=== PATIENT | female | born 1960 | race Two or more races ===

== ENCOUNTER 2024-06-19 07:09 | Inpatient (IN) | payer SELFPAY ==
[2024-06-17 11:55] LABS: Urine Bacteria None Seen /hpf (None Seen)
[2024-06-17 12:02] LABS: Basophils # (auto) 0 10 ^3/uL (0-0.2); Basophils % (auto) 0.5 % (0.0-2.0); Eosinophils # (auto) 0.1 10 ^3/uL (0-0.8); Eosinophils % (auto) 2.8 % (0.0-7.0); Hematocrit 42.2 % (36.0-46.0); Hemoglobin 14.2 g/dL (12.2-16.2); Lymphocytes # (auto) 2.2 10 ^3/uL (0.4-5.4); Lymphocytes % (auto) 43.2 % (10.0-50.0); Mean Corpuscular Hemoglobin 28.2 pg (28.0-32.0); Mean Corpuscular Hgb Conc. 33.6 g/dL (32.0-36.0); Mean Corpuscular Volume 83.9 fL (80.0-100.0); Monocytes # (auto) 0.6 10 ^3/uL (0-1.3); Monocytes % (auto) 11.3 % (0.0-12.0); Neutrophils # (auto) 2.2 10 ^3/uL (1.6-8.6); Neutrophils % (auto) 42.2 % (37.0-80.0); Nucleated Red Blood Cells % 0.1 %; Platelet Count (auto) 285 10^3/uL (140-450); Red Blood Cells 5.03 10^6/uL (4.0-5.20); Red Cell Distribution Width 13.8 % (11.8-14.3); White Blood Cell 5.1 10^3/uL (4.4-10.8)
[2024-06-17 12:18] LABS: Alanine Aminotransferase 26 U/L (7-40); Alkaline Phosphatase 69 U/L (46-116); Aspartate Aminotransferase 20 U/L (13-40); Blood Urea Nitrogen 12 mg/dL (9-23); Calcium 9.9 mg/dL (8.7-10.4); Chloride 102 mmol/L (98-107); Glucose 97 mg/dL (74-106); INR 1.02 (0.9-1.15); Partial Thromboplastin Time 29.1 SEC (24.5-34.5); Prothrombin Time 10.8 sec (9.3-11.8); Sodium 141 mmol/L (136-145)
[2024-06-17 12:19] LABS: Total Protein 7.4 g/dL (5.7-8.2)
[2024-06-17 12:22] LABS: Potassium 3.2 mmol/L (3.5-5.1)
[2024-06-17 12:24] LABS: Albumin 4.8 g/dL (3.2-4.8); Anion Gap 6 (5-15); Bilirubin, Total 0.3 mg/dL (0.2-1.0); Carbon Dioxide 33 mmol/L (20-31)
[2024-06-17 13:07] LABS: Urine Blood Negative /uL (Negative); Urine Clarity Clear (Clear); Urine Color Light-Yellow (Yellow); Urine Protein, UAD Negative (Negative); Urine Specific Gravity 1.008 (1.001-1.035); Urine Squamous Epithelial Cell FEW /hpf (<5); Urine Urobilinogen Normal (Negative); Urine WBC < 1 /HPF (0-5)
[2024-06-17 14:18] LABS: BUN/Creatinine Ratio 13.6 (10.0-20.0)
[~2024-06-19] VITALS: Ht 152.4 cm; Wt 29.3 kg
[~2024-06-19 07:09] MED LIST: ATOR20TA50 PO; HYDR25TA4 PO; LEVO100T8 PO; PANT40TA2 PO
[2024-06-19] MEDS: ceFAZolin 2 GM/D5W100ml 100 ML IV ONE (07:20)
[2024-06-19] MEDS ORDERED: ePHEDrine SULFATE 50 MG/ML AMP ONE (07:39)
[2024-06-19] MEDS ORDERED: MIDAZOLAM HCL 2MG/2ML 2ml VIAL (1mg/ml) ONE (07:39)
[2024-06-19] MEDS ORDERED: ROCURONIUM 10MG/ML 10ML VIAL IV ONE (07:39)
[2024-06-19] MEDS ORDERED: GLYCOPYRROLATE 0.2 MG/ML 1ML VIAL ONE (07:39)
[2024-06-19] MEDS ORDERED: fentaNYL CITRATE 100 MCG/2 ML VL ONE (07:39)
[2024-06-19] MEDS ORDERED: ONDANSETRON HCL 4 MG/2 ML VIAL ONE (07:39)
[2024-06-19] MEDS ORDERED: PHENYLEPHRINE HCL 10 MG/ML VL ONE (07:39)
[2024-06-19] MEDS ORDERED: HYDROmorphone HCL 2 MG/ML VL/or syr ONE (07:39)
[2024-06-19] MEDS ORDERED: LIDOCAINE 2% (LOCAL ANESTH.) PF 5ml SDV ONE (07:39)
[2024-06-19] MEDS ORDERED: PROPOFOL 10 MG/ML 20 ML IV ONE (07:39)
[2024-06-19] MEDS ORDERED: DexAMETHasone SOD PHOS 10MG/1ML VIAL INJ ONE (07:39)
[2024-06-19] MEDS ORDERED: SUGAMMADEX 200mg/2ml Vial (100MG/ML) IV ONE (08:32)
[2024-06-19] MEDS: LIDOCAINE W/ EPINEPHRINE 1% 20ML VIAL ONE (08:37)
[2024-06-19] MEDS: BUPIVACAINE 0.5% P/F INJ 10 ML VIAL ONE (08:37)
[2024-06-19] MEDS ORDERED: ONDANSETRON HCL 4 MG/2 ML VIAL IV PRN (09:00)
[2024-06-19 09:02] VITALS: PULSE 105; RESP 15; O2SAT 98
--- NOTE | 2024-06-19 09:10 | DVHOP ---
DATE OF SURGERY: 06/19/2024 PREOPERATIVE DIAGNOSES: Cholelithiasis, cholecystitis. POSTOPERATIVE DIAGNOSES: Cholelithiasis, cholecystitis. SURGEON: Wil Carr MD [employer]INTE[employer]CE ELECTRICIAN: Cooper Bhatt. ANESTHESIA: General endotracheal. ANESTHESIOLOGIST: Dr. Woodall. PROCEDURES: Laparoscopy, laparoscopic cholecystectomy. DESCRIPTION OF PROCEDURE: Under general endotracheal anesthesia, with the patient's skin prepped and draped, supraumbilical incision was made and Veress needle inserted into the abdomen in order to establish pneumoperitoneum to 15 mmHg pressure by insufflation with carbon dioxide. With the abdomen fully distended, the needle was removed and replaced with a 5 mm trocar port through which a 0-degree viewing laparoscope was inserted and under direct vision, 5 and 10 mm ports inserted through the right lateral abdominal wall at the level of the umbilicus and the subxiphoid skin in the midline respectively. Instrumentation was introduced. Laparoscopy was performed, revealed no obvious unexpected pathology. The gallbladder was affected by chronic cholecystitis. It was placed on tension. The cystic duct and cystic artery were identified, circumferentially dissected, skeletonized and traced into the hepatocystic triangle so as to minimize the potential for inadvertent injury to the common bile duct. The cystic duct and cystic artery were then divided between metallic clips and the gallbladder resected from its liver bed by electrocautery and traction. The fully mobilized gallbladder was removed from the peritoneal cavity by placement in a specimen extraction bag, which was removed from the peritoneal cavity through the subxiphoid 10 mm port site. The right upper quadrant was then profusely irrigated, irrigant was aspirated. Amniotic allograft placed into the liver bed to aid with prevention of adhesions. The hemostasis being complete, the instrumentation was withdrawn. Pneumoperitoneum was evacuated. Fascial defect closed using 0 Vicryl. Wounds approximated using Monocryl sutures, Dermabond glue and Steri-Strips. The patient remained stable throughout the procedure, left the operating room following an accurate needle and sponge count. Family was thoroughly informed in the waiting area. Wil Carr MD PF/SAY TID: [id number] RECEIPT: [id number]
[2024-06-19] MEDS: ONDANSETRON HCL 4 MG/2 ML VIAL IV ONE (09:15)
[2024-06-19] MEDS: HYDROmorphone HCL 2 MG/ML VL/or syr IV PRN (09:28)
[2024-06-19] MEDS: PANTOPRAZOLE 40 MG/10 ML VIAL INJ IV SCH (10:00)
[2024-06-19 12:00] VITALS: BP 125/81; PULSE 63; RESP 16; TEMP 97.6; O2SAT 100
[2024-06-19] MEDS: D5W/SOD CHL 0.45%/KCL 20MEQ 1,000 ML IV SCH (12:01)
[2024-06-19] MEDS: ceFAZolin 1GM/50ML 50 ML IV SCH (14:24)
[2024-06-19] MEDS ORDERED: MORPHINE SULFATE INJ 2 MG/ml SYRG IV PRN (15:00)
--- NOTE | 2024-06-19 15:01 | DVHHP2 ---
Review of Systems Allergies: Uncoded Allergies: Imetrix (Allergy, Severe, Anaphylaxis, 06/17/24) Medications Current Medications Medications Dose Ordered Sig/Tiat Route Start Time Stop Time Status Last Admin Dose Admin Potassium Chloride/Dextrose/ Sod Cl 1,000 ml @ 100 mls/hr Q10H IV 06/19/24 09:00 06/19/24 12:01 100 MLS/HR Cefazolin Sodium 50 ml @ 100 mls/hr Q8HR IV 06/19/24 14:00 06/19/24 14:24 100 MLS/HR Ondansetron HCl 4 mg Q4HPRN PRN IV 06/19/24 09:00 Pantoprazole Sodium 40 mg DAILY IV 06/19/24 10:00 06/19/24 10:00 40 MG Acetaminophen/ Codeine Phosphate 1 tab Q4HP PRN PO 06/19/24 09:00 Exam Vital Signs Vital Signs Date Time Temp Pulse Resp B/P (MAP) Pulse Ox O2 Delivery O2 Flow Rate FiO2 06/19/24 12:00 97.6 63 16 125/81 (96) 100 97.6 06/19/24 09:02 Mask 7.0 06/19/24 09:02 98 Labs/Xrays Labs Test 06/17/24 11:48 Range/Units White Blood Count 5.1 4.4-10.8 10^3/uL Red Blood Count 5.03 4.0-5.20 10^6/uL Hemoglobin 14.2 12.2-16.2 g/dL Hematocrit 42.2 36.0-46.0 % Mean Corpuscular Volume 83.9 80.0-100.0 fL Mean Corpuscular Hemoglobin 28.2 28.0-32.0 pg Mean Corpuscular Hemoglobin Concent 33.6 32.0-36.0 g/dL Red Cell Distribution Width 13.8 11.8-14.3 % Platelet Count 285 140-450 10^3/uL Mean Platelet Volume 8.4 6.9-10.8 fL Neutrophils (%) (Auto) 42.2 37.0-80.0 % Lymphocytes (%) (Auto) 43.2 10.0-50.0 % Monocytes (%) (Auto) 11.3 0.0-12.0 % Eosinophils (%) (Auto) 2.8 0.0-7.0 % Basophils (%) (Auto) 0.5 0.0-2.0 % Neutrophils # (Auto) 2.2 1.6-8.6 10 ^3/uL Lymphocytes # (Auto) 2.2 0.4-5.4 10 ^3/uL Monocytes # (Auto) 0.6 0-1.3 10 ^3/uL Eosinophils # (Auto) 0.1 0-0.8 10 ^3/uL Basophils # (Auto) 0 0-0.2 10 ^3/uL Nucleated Red Blood Cells 0.1 % Prothrombin Time 10.8 9.3-11.8 sec Prothrombin Time INR 1.02 0.9-1.15 Activated Partial Thromboplast Time 29.1 24.5-34.5 SEC Urine Color Light-yellow Yellow Urine Clarity Clear Clear Urine pH 7.0 5.0-9.0 Urine Specific [place] 1.008 1.001-1.035 Urine Protein Negative Negative Urine Ketones Negative Negative Urine Blood Negative Negative /uL Urine Nitrite Negative Negative Urine Bilirubin Negative Negative Urine Urobilinogen Normal Negative mg/dL Urine Leukocyte Esterase Negative Negative /uL Urine RBC <1 0 - 4 /hpf Urine Microscopic WBC < 1 0-5 /HPF Urine Squamous Epithelial Cells Few <5 /hpf Urine Bacteria None seen None Seen /hpf Urine Glucose Normal Normal mg/dL Sodium Level 141 136-145 mmol/L Potassium Level 3.2 L 3.5-5.1 mmol/L Chloride Level 102 98-107 mmol/L Carbon Dioxide Level 33 H 20-31 mmol/L Anion Gap 6 5-15 Blood Urea Nitrogen 12 9-23 mg/dL Creatinine 0.88 0.550-1.02 mg/dL Glomerular Filtration Rate Calc 73 >90 mL/min BUN/Creatinine Ratio 13.6 10.0-20.0 Serum Glucose 97 74-106 mg/dL Calcium Level 9.9 8.7-10.4 mg/dL Total Bilirubin 0.3 0.2-1.0 mg/dL Aspartate Amino Transferase (AST) 20 13-40 U/L Alanine Aminotransferase (ALT) 26 7-40 U/L Alkaline Phosphatase 69 46-116 U/L Total Protein 7.4 5.7-8.2 g/dL Albumin 4.8 3.2-4.8 g/dL Assessment/Plan Assessment/Plan see dictated note Plan discussed with: Patient My Orders Orders - HIMA FLORES MD Procedure Category Date Status Time Admit ADMIT 06/19/24 Transmitted 10:06 Date of Service: Jun 19, 2024 Billing Provider: HIMA FLORES MD Common Visit Codes: [id number] INP/OBS CARE (HIGH) HIMA FLORES MD Jun 19, 2024 15:01
--- NOTE | 2024-06-19 15:17 | DVHHP ---
ADMIT DATE: 06/19/2024 HISTORY OF PRESENT ILLNESS: The patient is a 64-year-old lady who underwent a laparoscopic cholecystectomy for cholelithiasis and chronic cholecystitis. The patient at this time denies any significant abdominal pain. No shortness of breath. No nausea or vomiting. REVIEW OF SYSTEMS: Review of rest of systems are otherwise currently negative. PAST MEDICAL HISTORY: Significant for hypertension, hypothyroidism, GERD and hyperlipidemia. MEDICATIONS: She takes atorvastatin, hydrochlorothiazide, levothyroxine, and Protonix. ALLERGIES: IMITREX. SOCIAL HISTORY: Denies smoking or alcohol. Lives at home with family. FAMILY HISTORY: Negative. PHYSICAL EXAMINATION: GENERAL: The patient is awake, alert. VITAL SIGNS: Temperature of 97.6, pulse 63 per minute, blood pressure 120/81. SHEENT: Unremarkable. NECK: There is no JVD, no pedal edema. LUNGS: Equal bilaterally. No added sounds. CARDIOVASCULAR: S1, S2 is regular, no murmurs. ABDOMEN: Soft. Bowel sounds are hypoactive. NEUROLOGIC: Nonfocal. MUSCULOSKELETAL: Normal. ASSESSMENT AND PLAN: * Hypertension, for which her blood pressure will be monitored. * Hypothyroidism. The patient will continue on levothyroxine and TSH will be checked. * Hyperlipidemia. * Gastroesophageal reflux disease. * Status post laparoscopic cholecystectomy for cholelithiasis and chronic cholecystitis. The patient will be placed on a clear liquid diet with IV fluids and pain medications. MD EMMY Mistry/BEAU TID: [id number] RECEIPT: [id number]
[2024-06-19 16:32] VITALS: BP 110/59; PULSE 65; RESP 18; TEMP 97.9; O2SAT 96
[2024-06-19] MEDS: ACETAMINOPHEN/CODEINE#3 (300/30mg) TAB PO PRN (18:23)
[2024-06-19 20:00] VITALS: PULSE 86; RESP 19; O2SAT 98
[2024-06-19 21:00] VITALS: BP 111/71; PULSE 86; RESP 19; TEMP 98.2; O2SAT 98
[2024-06-20 01:00] VITALS: BP 108/70; PULSE 80; RESP 17; TEMP 97.4; O2SAT 100
[2024-06-20 05:00] VITALS: BP 141/72; PULSE 75; RESP 18; TEMP 97.7; O2SAT 98
[2024-06-20] MEDS: LEVOTHYROXINE SODIUM 100 MCG TAB PO SCH (06:07)
[2024-06-20 06:09] LABS: Basophils # (auto) 0 10 ^3/uL (0-0.2); Eosinophils # (auto) 0 10 ^3/uL (0-0.8); Hematocrit 41.7 % (36.0-46.0); Hemoglobin 13.8 g/dL (12.2-16.2); Lymphocytes # (auto) 0.9 10 ^3/uL (0.4-5.4); Lymphocytes % (auto) 10.2 % (10.0-50.0); Mean Corpuscular Hemoglobin 27.9 pg (28.0-32.0); Mean Corpuscular Hgb Conc. 33.1 g/dL (32.0-36.0); Monocytes # (auto) 0.7 10 ^3/uL (0-1.3); Monocytes % (auto) 7.7 % (0.0-12.0); Neutrophils # (auto) 7.4 10 ^3/uL (1.6-8.6); Neutrophils % (auto) 82.1 % (37.0-80.0); Nucleated Red Blood Cells % 0.1 %; Platelet Count (auto) 284 10^3/uL (140-450); Red Blood Cells 4.96 10^6/uL (4.0-5.20); Red Cell Distribution Width 14.4 % (11.8-14.3)
[2024-06-20 06:24] LABS: Alanine Aminotransferase 37 U/L (7-40); Albumin 4.4 g/dL (3.2-4.8); Alkaline Phosphatase 59 U/L (46-116); Anion Gap 8 (5-15); Aspartate Aminotransferase 31 U/L (13-40); Bilirubin, Total 0.3 mg/dL (0.2-1.0); Calcium 9.6 mg/dL (8.7-10.4); Carbon Dioxide 27 mmol/L (20-31); Potassium 3.7 mmol/L (3.5-5.1); Sodium 143 mmol/L (136-145); Total Protein 6.8 g/dL (5.7-8.2)
[2024-06-20 06:25] LABS: Blood Urea Nitrogen 8 mg/dL (9-23); Chloride 108 mmol/L (98-107); Glucose 122 mg/dL (74-106)
[2024-06-20 08:00] VITALS: PULSE 63; RESP 17; O2SAT 98
[2024-06-20 09:00] VITALS: BP 131/70; PULSE 63; RESP 18; TEMP 98; O2SAT 94
[2024-06-20 12:30] VITALS: BP 99/56; PULSE 69; RESP 17; TEMP 97.7; O2SAT 97
--- NOTE | 2024-06-20 15:23 | DVHDS2 ---
Discharge Summary Date of Admission Jun 19, 2024 at 10:06 Date of Discharge: Jun 20, 2024 Labs/Diagnostic Data: Laboratory Results Test 06/20/24 05:00 06/17/24 11:48 White Blood Count 9.0 10^3/uL (4.4-10.8) Red Blood Count 4.96 10^6/uL (4.0-5.20) Hemoglobin 13.8 g/dL (12.2-16.2) Hematocrit 41.7 % (36.0-46.0) Mean Corpuscular Volume 84.0 fL (80.0-100.0) Mean Corpuscular Hemoglobin 27.9 pg (28.0-32.0) Mean Corpuscular Hemoglobin Concent 33.1 g/dL (32.0-36.0) Red Cell Distribution Width 14.4 % (11.8-14.3) Platelet Count 284 10^3/uL (140-450) Mean Platelet Volume 9.1 fL (6.9-10.8) Neutrophils (%) (Auto) 82.1 % (37.0-80.0) Lymphocytes (%) (Auto) 10.2 % (10.0-50.0) Monocytes (%) (Auto) 7.7 % (0.0-12.0) Eosinophils (%) (Auto) 0.0 % (0.0-7.0) Basophils (%) (Auto) 0.0 % (0.0-2.0) Neutrophils # (Auto) 7.4 10 ^3/uL (1.6-8.6) Lymphocytes # (Auto) 0.9 10 ^3/uL (0.4-5.4) Monocytes # (Auto) 0.7 10 ^3/uL (0-1.3) Eosinophils # (Auto) 0 10 ^3/uL (0-0.8) Basophils # (Auto) 0 10 ^3/uL (0-0.2) Nucleated Red Blood Cells 0.1 % Sodium Level 143 mmol/L (136-145) Potassium Level 3.7 mmol/L (3.5-5.1) Chloride Level 108 mmol/L (98-107) Carbon Dioxide Level 27 mmol/L (20-31) Anion Gap 8 (5-15) Blood Urea Nitrogen 8 mg/dL (9-23) Creatinine 0.73 mg/dL (0.550-1.02) Glomerular Filtration Rate Calc 92 mL/min (>90) BUN/Creatinine Ratio 11.0 (10.0-20.0) Serum Glucose 122 mg/dL (74-106) Calcium Level 9.6 mg/dL (8.7-10.4) Total Bilirubin 0.3 mg/dL (0.2-1.0) Aspartate Amino Transferase (AST) 31 U/L (13-40) Alanine Aminotransferase (ALT) 37 U/L (7-40) Alkaline Phosphatase 59 U/L (46-116) Total Protein 6.8 g/dL (5.7-8.2) Albumin 4.4 g/dL (3.2-4.8) Thyroid Stimulating Hormone (TSH) 0.49 uIU/mL (0.55-4.78) Prothrombin Time 10.8 sec (9.3-11.8) Prothrombin Time INR 1.02 (0.9-1.15) Activated Partial Thromboplast Time 29.1 SEC (24.5-34.5) Urine Color Light-yellow (Yellow) Urine Clarity Clear (Clear) Urine pH 7.0 (5.0-9.0) Urine Specific [place] 1.008 (1.001-1.035) Urine Protein Negative (Negative) Urine Ketones Negative (Negative) Urine Blood Negative /uL (Negative) Urine Nitrite Negative (Negative) Urine Bilirubin Negative (Negative) Urine Urobilinogen Normal mg/dL (Negative) Urine Leukocyte Esterase Negative /uL (Negative) Urine RBC <1 /hpf (0 - 4) Urine Microscopic WBC < 1 /HPF (0-5) Urine Squamous Epithelial Cells Few /hpf (<5) Urine Bacteria None seen /hpf (None Seen) Urine Glucose Normal mg/dL (Normal) Other Laboratory Tests 06/20/24 05:00 Brief Hx & Hospital Course: SEE DICTATED NOTE Condition at Discharge: Good Final Diagnosis/Problems List LAP VINOD Discharge Disposition: Home Discharge Instruct/Medications Diet: Cardiac 2g Na,low cholest Activity: No Restrictions, As Tolerated Follow Up/Referral: SCHEDULE APPT WITH DR MORRISON IN 1 WK Medications: RESUME HOME MEDS SCRIPT TO PHARMACY Discharge Statement: "Patient was advised to return to the ER or call 911 if any headaches, dizziness, shortness of breath, chest pain, abdominal pain, bleeding, fevers, or worsening of medical condition. Patient was counseled about treatment plan, medications, possible side effects, patientverbalized understanding. All questions were answered to the best of my ability. This discharge took greater then 30 minutes in planning, reviewing documentation, counseling the patient, and discussing with other team members." ASSESSMENT ASSESSMENT Assessment ROSE MARY BROCK Date of Service: Jun 20, 2024 Billing Provider: HIMA FLORES MD Common Visit Codes: [id number] DISCH DAY >30min HIMA FLORES MD Jun 20, 2024 15:23
[2024-06-20] MEDS ORDERED: DOCU-94 PO (15:25)
[2024-06-20] MEDS ORDERED: TRAM-626 PO (15:25)
[2024-06-20] MEDS ORDERED: CEPH500T PO (15:25)
--- NOTE | 2024-06-20 15:39 | DVHDS ---
DATE OF DISCHARGE: 06/20/2024 HISTORY OF PRESENT ILLNESS: The patient is a 64-year-old lady who was admitted with history of cholelithiasis and chronic cholecystitis and has history of hypertension, hypothyroidism and GERD. HOSPITAL COURSE: The patient did well postoperatively. Her liver function tests are stable. She has been tolerating oral diet. The patient will now be discharged home to resume home medications as well as to be on Keflex 500 mg t.i.d. for 7 days, tramadol p.r.n. for pain and Colace p.r.n. for constipation. She will follow up with Dr. Carr in 1 week. FINAL DIAGNOSES: Therefore, * Hypertension. * Hypothyroidism. * Hyperlipidemia. * Gastroesophageal reflux disease. * Status post laparoscopic cholecystectomy for cholelithiasis and chronic cholecystitis. Time spent in discharge planning and review of plan with the patient and nursing was 36 minutes. MD EMMY Mistry/DAYANARA TID: [id number] RECEIPT: [id number]
[2024-06-20 17:05] VITALS: BP 145/71; PULSE 67; RESP 17; TEMP 97.9; O2SAT 94
== END 2024-06-20 17:38 | disposition home or self-care (01) | DRG 419 ==
LOC: SUR 07:09 → OVERFLOW 10:06 → WEST WING 11:28
PROVIDERS: ADMIT Internal Medicine; ATTEND Internal Medicine
PROC: 0FT44ZZ Resection of Gallbladder, Percutaneous Endoscopic Approach (ICD-10-PCS; principal; 2024-06-19 07:57)
DX: K80.10 Calculus of gallbladder with chronic cholecystitis without obstruction (principal); K21.9 Gastro-esophageal reflux disease without esophagitis; I10 Essential (primary) hypertension; E03.9 Hypothyroidism, unspecified; E78.5 Hyperlipidemia, unspecified; K59.00 Constipation, unspecified; Z88.8 Allergy status to other drugs, medicaments and biological substances
CPT/HCPCS: 36415; 80053; 81001; 84443; 85025; 85610; 85730; 86850; 86900; 86901; G0378; J1100; J2003; J2250; J2405; J2470; J2704; J3490